=== PATIENT | male | born 1955 | race Caucasian/White ===

== ENCOUNTER 2016-10-30 11:38 | Emergency (ER) | payer OTHER, MEDICARE ==
[~2016-10-30] VITALS: Ht 162.6 cm; Wt 100.0 kg
[~2016-10-30 11:38] MED LIST: ALBUTEROL2.5 MG/3 M NEB; ALEVE220 M3 PO; ASPIR-LOW81 M1 PO; DIPHENHYDRAMINE50 M2 PO; FEOSOL325 M1 PO; GLUCOPHAGE1000 M1 PO; HYDROCHLOROTHIA25 M1 PO; LEVEMIR100 UNITS/ SC; METOPROLOL TART25 M1 PO; MUCINEX D ER T1 EAC2 PO; NOVOLOG FL100 UNIT/2 SC; OMEPRAZOLE MAGN20 M1 PO; PRAVACHOL40 M1 PO; PROAIR HFA8.5 GM INH; SPIRIVA18 MC1 INH
[2016-10-30] MEDS ORDERED: TYLENOL325 M2 PO (11:45)
[2016-10-30] MEDS ORDERED: SYMBICORT 160-1 PUFF INH (11:46)
[2016-10-30] MEDS ORDERED: GLUTOSE PO (11:46)
[2016-10-30] MEDS ORDERED: ATORVASTATIN CA10 M1 PO (11:46)
[2016-10-30] MEDS ORDERED: TENORMIN25 M1 PO (11:46)
[2016-10-30] MEDS ORDERED: MUCINEX600 M1 PO (11:47)
[2016-10-30] MEDS ORDERED: NOVOLOG FL100 UNIT/2 SC (11:49)
[2016-10-30] MEDS ORDERED: XALATAN2.5 M1 OP (11:50)
[2016-10-30] MEDS ORDERED: LEVEMIR FL100 UNIT/2 SC ×2 (11:50)
[2016-10-30] MEDS ORDERED: COZAAR100 M1 PO (11:51)
[2016-10-30] MEDS ORDERED: SYNTHROID25 MC1 PO (11:51)
[2016-10-30 12:37] LABS: BASO ABSOLUTE COUNT 0.1 tho/cmm (0.0-0.2); EOS % 2.8 % (0-7); EOSINOPHIL ABSOLUTE COUNT 0.3 tho/cmm (0.0-0.7); HCT-HEMATOCRIT 47.3 % (36.0-53.5); HGB-HEMOGLOBIN 15.5 gm/dl (13.5-17.0); IMMATURE GRANULOCYTES ABSOLUTE 0.04 tho/cmm (0-0.03); IMMATURE GRANULOCYTES PERCENT 0.3 % (0-0.3); LYMPH % 25.7 % (20-45); LYMPH ABSOLUTE COUNT 3.1 tho/cmm (0.8-4.5); MCHC MEAN CORPUSCULAR HGB CONC 32.8 % (32.0-36.0); MCV (MEAN CELL VOLUME) 88.6 fl (82.0-96.0); MEAN PLATELET VOLUME 9.2 cmc (9.4-12.4); MONOCYTE ABSOLUTE COUNT 1.1 tho/cmm (0.0-1.2); NEUTROPHIL ABSOLUTE COUNT 7.3 tho/cmm (1.6-8.0); NEUTROPHIL-AUTOMATED 7.3 tho/cmm (1.6-8.0); NEUTROPHILS % 61.2 % (40-80); PLATELET COUNT 308 tho/cmm (150-450); RED BLOOD COUNT 5.34 mil/cmm (4.40-5.70); RED CELL DISTRIBUTION WIDTH 13.5 % (12.4-16.4)
[2016-10-30 12:50] LABS: ANION GAP 13 mmol/L (0-20); BLOOD UREA NITROGEN 11 mg/dl (6-24); CALCIUM 9.3 mg/dl (8.5-10.5); CARBON DIOXIDE-VENOUS 28 mmol/L (22-32); CHLORIDE 104 mmol/l (96-110); CREATININE 1.08 mg/dl (0.60-1.30); GLUCOSE 79 mg/dL (70-110); POTASSIUM 3.8 mmol/L (3.7-5.1); SODIUM 141 mmol/L (135-145); eGFR VALUE FOR BLACK 87 mL/Min
== END 2016-10-30 18:11 | disposition other institution (70) ==
LOC: EDMED → EDBD 11:38 → EDMED 11:38
PROVIDERS: Emergency Medicine
DX: J44.1 Chronic obstructive pulmonary disease with (acute) exacerbation (principal); R09.02 Hypoxemia; I25.10 Atherosclerotic heart disease of native coronary artery without angina pectoris; E11.9 Type 2 diabetes mellitus without complications; I10 Essential (primary) hypertension; Z95.1 Presence of aortocoronary bypass graft; Z87.891 Personal history of nicotine dependence; Z79.899 Other long term (current) drug therapy
CPT/HCPCS: J2930; J7030